=== PATIENT | female | born 1950 | race Caucasian/White ===

== ENCOUNTER → 2017-05-25 | Outpatient (CLI) | payer BC | LOC: MC.RAD 14:03 | DX: Z12.31 Encounter for screening mammogram for malignant neoplasm of breast (principal); Z41.1 Encounter for cosmetic surgery; R92.1 Mammographic calcification found on diagnostic imaging of breast ==

== ENCOUNTER 2022-10-27 10:01 | Day surgery (SDC) | payer MEDICARE, OTHER ==
[~2022-10-27] VITALS: Ht 167.6 cm; Wt 60.6 kg
[2022-10-27] MEDS ORDERED: LEXAPRO20 MG PO (11:09)
[2022-10-27] MEDS ORDERED: CEPHALEXIN500 M1 PO (11:09)
[2022-10-27] MEDS ORDERED: WELLBUTRIN SR150 M1 PO (11:10)
[2022-10-27] MEDS ORDERED: LIPITOR 10MG10 MG PO (11:11)
[2022-10-27] MEDS ORDERED: KLOR-CON SPRIN10 MEQ PO (11:11)
[2022-10-27] MEDS ORDERED: PRINIVIL10 MG PO (11:12)
[2022-10-27] MEDS ORDERED: HCTZ 25MG TAB25 MG PO (11:13)
[2022-10-27] MEDS ORDERED: LUNESTA3 MG PO (11:14)
[2022-10-27] MEDS ORDERED: QUESTRAN LI4 GM/5 GM (11:17)
[2022-10-27 11:30] VITALS: BP 118/76; PULSE 74; TEMP 97.6
[2022-10-27] MEDS ORDERED: CALCIUM 600 MG1 EAC2 PO (11:31)
[2022-10-27] MEDS ORDERED: NATURE'S BLEND500 M1 PO (11:32)
[2022-10-27] MEDS ORDERED: THE MEDICINE S200 M2 PO (11:32)
[2022-10-27] MEDS ORDERED: TURMERIC500 MG PO (11:34)
[2022-10-27 11:45] VITALS: BP 119/77; PULSE 70
[2022-10-27 11:48] VITALS: BP 107/77; PULSE 80; TEMP 97.6
[2022-10-27 12:00] VITALS: BP 110/69; PULSE 76
--- NOTE | 2022-10-27 12:10 | NUR ---
1130 RETURNS TO ROOM 6 PER CART. AWAKE, ALERT. RESP UNLABORED. AMBULATES TO RECLINER WITH STANDBY ASSIST. DENIES NAUSEA OR ABD PAIN. VITAL SIGNS OBTAINED. CALL LIGHT AT SIDE. 1145 TOLERATES PO WATER AND MUFFIN WITHOUT NAUSEA. 1150 DISCHARGE INSTRUCTIONS REVIEWED. PATIENT VERBALIZES UNDERSTANDING. COPY PROVIDED IN DISCHARGE FOLDER. 1154 DR. LEBLANC HERE TO VISIT WITH PATIENT 1205 DRESSES SELF
[2022-10-27 13:26] VITALS: BP 109/72; PULSE 81
== END 2022-10-27 12:12 | disposition home or self-care (01) ==
LOC: SDCO 10:01
DX: K52.831 Collagenous colitis (principal); K57.30 Diverticulosis of large intestine without perforation or abscess without bleeding; I10 Essential (primary) hypertension; Z87.891 Personal history of nicotine dependence
CPT/HCPCS: J2704; J3010